=== PATIENT | male | born 1950 | race Caucasian/White ===

== ENCOUNTER → 2019-04-07 | Outpatient (CLI) | payer MEDICARE, OTHER ==
[2019-04-07 08:37] LABS: BASOPHILS ABSOLUTE AUTO 0.06 K/mm3 (0.00-0.23); BASOPHILS PERCENT AUTO 1 % (0-2); EOSINOPHILS ABSOLUTE AUTO 0.13 K/mm3 (0.00-0.68); EOSINOPHILS PERCENT AUTO 3 % (0-6); Hematocrit 43.9 % (37.0-53.0); IMMATURE GRAN ABSOLUTE AUTO 0.01 K/mm3 (0.00-0.10); IMMATURE GRAN PERCENT AUTO 0 % (0-1); LYMPHOCYTES ABSOLUTE AUTO 1.22 K/mm3 (0.84-5.20); LYMPHOCYTES PERCENT AUTO 29 % (21-46); MONOCYTES ABSOLUTE AUTO 0.26 K/mm3 (0.16-1.47); MONOCYTES PERCENT AUTO 6 % (4-13); Mean Corpuscular HGB 34.4 pg (26.0-34.0); Mean Corpuscular HGB Conc 34.2 g/dL (31.5-36.5); Mean Corpuscular Volume 101 fL (80-100); NEUTROPHILS ABSOLUTE AUTO 2.48 K/mm3 (1.96-9.15); NEUTROPHILS PERCENT AUTO 60 % (41-73); Platelet Count 194 K/mm3 (150-400); RDW Coefficient Variation 12.8 % (11.7-14.2); RDW Standard Deviation 48.1 fL (35.1-46.3); Red Blood Cell Count 4.36 M/mm3 (4.30-5.90); White Blood Cell Count 4.16 K/mm3 (4.00-11.30)
[2019-04-07 08:48] LABS: Alanine Aminotransfer (ALT/SGP 78 U/L (12-78); Albumin, Blood 3.9 g/dL (3.4-5.0); Albumin/Globulin Ratio 1.2 (0.8-1.8); Alk Phos 105 U/L (40-126); Anion Gap 9 mmol/L (6-16); Aspartate Aminotrans (AST/SGOT 41 U/L (12-37); Bilirubin, Total 0.6 mg/dL (0.1-1.0); Blood Urea Nitrogen 26 mg/dL (8-24); Bun/Creatinine Ratio 27.4 (12.0-20.0); CO2, Blood 28 mmol/L (21-32); Calcium, Blood 9.3 mg/dL (8.5-10.1); Chloride, Blood 106 mmol/L (98-108); Creatinine, Blood 0.95 mg/dL (0.60-1.20); Globulin, Blood 3.2 g/dL (2.2-4.0); Glomerular Filtration Rate >60 (60-); Glucose, Blood 103 mg/dL (70-99); Sodium, Blood 143 mmol/L (136-145); Total Protein, Blood 7.1 g/dL (6.4-8.2)
== END | disposition home or self-care (01) ==
LOC: LAB SHORT 08:33 → LAB EV 08:33
PROVIDERS: Physician Assistant
DX: N40.0 Benign prostatic hyperplasia without lower urinary tract symptoms (principal)
CPT/HCPCS: 80053; 85025

== ENCOUNTER 2021-03-19 08:06 | Day surgery (SDC) | payer MEDICARE, OTHER | END 2021-03-20 12:00 | disposition home or self-care (01) | LOC: MHTC 08:06 | DX: R55 Syncope and collapse (principal) | CPT/HCPCS: 33285; C1764 ==

== ENCOUNTER → 2021-04-25 | Outpatient (CLI) | payer MEDICARE, OTHER ==
[2021-04-25 11:34] LABS: Source, Urine Clean Catch
[2021-04-25 14:10] LABS: Bilirubin, Urine Neg (Neg); Blood, Urine 1+ (Neg); Glucose Qualitative, Urine 4+ (Neg); Ketones, Urine Neg (Neg); Leukocyte Esterase, Urine 1+ (Neg); Nitrite, Urine Neg (Neg); Protein, Urine 2+ (Neg); Urobilinogen, Urine NORM (Normal)
[2021-04-25 14:21] LABS: Appearance, Urine Clear (Clear); Color, Urine Pale Yellow (P-Yellow)
[2021-04-25 14:22] LABS: Amorphous Light (0-Heavy); Bacteria Rare /hpf; Mucus Light (0-Heavy); Squamous Epithelial Cells Rare /hpf (Few)
[2021-04-26 13:14] LABS: C DIFFICILE DNA NEGATIVE (Negative)
== END ==
LOC: LAB SHORT 05:40
PROVIDERS: Nurse Practitioner
DX: R19.7 Diarrhea, unspecified (principal); R11.0 Nausea; R10.30 Lower abdominal pain, unspecified
CPT/HCPCS: 81001; 87015; 87045; 87046; 87086; 87205; 87493; 87899

== ENCOUNTER 2025-01-03 11:05 | Day surgery (SDC) | payer MEDICARE, OTHER ==
[~2025-01-03] VITALS: Ht 170.2 cm; Wt 80.0 kg
[2025-01-03] MEDS ORDERED: FINA5 PO (11:30)
[2025-01-03] MEDS ORDERED: B-12500 MC2 PO (11:30)
[2025-01-03] MEDS ORDERED: ATOR40TA PO (11:30)
[2025-01-03] MEDS ORDERED: LISI20 PO (11:30)
[2025-01-03] MEDS ORDERED: DHEA PO (11:31)
[2025-01-03] MEDS ORDERED: SELENIUM200 MC3 PO (11:31)
[2025-01-03] MEDS ORDERED: Flomax0.4 MG PO (11:32)
[2025-01-03] MEDS ORDERED: MAGNESIUM OXID500 MG PO (11:32)
[2025-01-03 11:34] VITALS: BP 149/60
[2025-01-03] MEDS ORDERED: Lidocaine 2%-Epineph 1:100000 20 ML MDV ONE (11:52)
[2025-01-03 12:23] VITALS: BP 160/55
--- NOTE | 2025-01-03 12:40 | NUR ---
PT DRESSED SELF WITHOUT ISSUE, SITE NO SWELLING/HEMATOMA, DRESSING CLEAN, DRY AND INTACT. PT RECEIVED DISCHARGE INSTRUCTIONS AND MED LIST; VERBALIZED GOOD UNDERSTANDING. PT LEFT FACILITY VIA W/C, CONDITION STABLE.
== END 2025-01-03 23:00 | disposition home or self-care (01) ==
LOC: MHTC 11:05
DX: Z45.09 Encounter for adjustment and management of other cardiac device (principal); K21.9 Gastro-esophageal reflux disease without esophagitis; E78.5 Hyperlipidemia, unspecified; Z79.899 Other long term (current) drug therapy
CPT/HCPCS: 33286